=== PATIENT | male | born 1960 | race Caucasian/White ===

== ENCOUNTER 2017-03-28 11:54 | Outpatient (CLI) | payer MEDICARE, OTHER ==
[2017-03-28 12:36] LABS: CARBAMAZEPINE (TEGRETOL) 9.4 ug/mL
== END 2017-03-28 11:55 | disposition home or self-care (01) ==
LOC: LAB 11:54
PROVIDERS: ATTEND Internal Medicine
DX: R56.9 Unspecified convulsions (principal); Z79.899 Other long term (current) drug therapy
CPT/HCPCS: 36415; 80156

== ENCOUNTER 2017-04-02 08:47 | Outpatient (CLI) | payer MEDICARE, OTHER ==
[~2017-04-02 08:47] MED LIST: GADOBUTROL 10 MMOL/10 ML VIAL ONE
[2017-04-02] MEDS ORDERED: GADOBUTROL 10 MMOL/10 ML VIAL IVP ONE (09:42)
--- NOTE | 2017-04-02 22:08 | MRI Report ---
EXAM: MRI BRAIN WITHOUT AND WITH CONTRAST EXAM DATE: 04/02/2017 09:50 AM. CLINICAL HISTORY: WORSENING SEIZURE. History of cavernoma. COMPARISON: CT head 05/10/2014, MR brain 03/11/2010 TECHNIQUE: Multiplanar, multisequence T1-weighted and fluid-sensitive MR sequences of the brain were performed. Sequences optimized for routine evaluation. Other: None. IV Contrast: Yes. 10 mL Gadavist FINDINGS: Brain Volume: Normal for age. Parenchyma: Redemonstration 9 mm cavernoma posterior left frontal lobe, appearance is similar to prio r study (for example series 501 image 21). Postcontrast sequence demonstrates associated developmenta l venous anomaly (series 1002 image 86). Otherwise no white matter lesions. No MRI evidence of additi onal cavernomas. No acute hemorrhage or infarct. No other abnormal intracranial enhancement. The hip pocampi appear symmetric and qualitatively normal in size and signal. Ventricles/Cisterns: No hydrocephalus. No abnormal extra-axial fluid collection or hemorrhage. Orbits: Symmetric and unremarkable. Sella Turcica: The pituitary gland, cavernous sinuses, suprasellar cistern and optic chiasm are unrem arkable. IAC: Symmetric and unremarkable. Vasculature: Normal signal flow void is seen in the major arterial structures at the skull base. The dural sinuses are patent and enhance normally. Sinuses: Mucous retention cysts/polyps right maxillary sinus. The remaining paranasal sinuses are floridalma ar. Bones: No focal pathologic appearing marrow signal changes. Other: None. IMPRESSION: 1. 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 2. No MRI evidence of acute intracranial abnormality. Specifically, no evidence of acute or subacute infarct, acute intracranial hemorrhage, interval development of new mass, midline shift, or hydroceph alus. 3. The hippocampi appear symmetric and qualitatively normal in size and signal. [facility] Referring Provider Line: [phone] SITE ID: [id number]
== END 2017-04-02 08:48 | disposition home or self-care (01) ==
LOC: DI 08:47
PROVIDERS: ATTEND Internal Medicine
DX: R56.9 Unspecified convulsions (principal); R51 Headache; Q28.3 Other malformations of cerebral vessels
CPT/HCPCS: 70553; A9585

== ENCOUNTER 2017-07-25 11:35 | Outpatient (CLI) | payer MEDICARE, OTHER ==
[2017-07-25 11:53] LABS: BASOPHILS % (AUTO) 0.9 %; EOSINOPHILS % (AUTO) 0.9 %; HGB - HEMOGLOBIN 15.2 g/dL (14.0-18.0); LYMPHOCYTES # (AUTO) 1.6 10^3/uL (1.5-3.5); LYMPHOCYTES % (AUTO) 35.6 %; MEAN CORPUSCULAR HEMOGLOBIN 29.9 pg (27.0-31.0); MEAN CORPUSCULAR HGB CONC 33.7 g/dL (32.0-36.0); MEAN CORPUSCULAR VOLUME 88.7 fL (80.0-94.0); MEAN PLATELET VOLUME 7.3 fL (7.4-11.4); MONOCYTES # (AUTO) 0.5 10^3/uL (0.0-1.0); MONOCYTES % (AUTO) 10.4 %; NEUTROPHILS # (AUTO) 2.3 10^3/uL (1.5-6.6); NEUTROPHILS % (AUTO) 52.2 %; PLT - PLATELET COUNT 172 10^3/uL (130-450); RED BLOOD COUNT 5.08 10^6/uL (4.70-6.10); RED CELL DISTRIBUTION WIDTH 13.7 % (12.0-15.0); WHITE BLOOD COUNT 4.4 x10^3/uL (4.8-10.8)
[2017-07-25 12:09] LABS: ALBUMIN 3.9 g/dL (3.2-5.5); ALKALINE PHOSPHATASE 104 IU/L (42-121); ALT ALANINE AMINOTRANSFERASE 23 IU/L (10-60); AST ASPARTATE AMINOTRANSFERASE 20 IU/L (10-42); BILIRUBIN,DIRECT 0.1 mg/dL (0.1-0.5); BILIRUBIN,TOTAL 0.5 mg/dL (0.2-1.0); CARBAMAZEPINE (TEGRETOL) 6.6 ug/mL
== END 2017-07-25 11:36 | disposition home or self-care (01) ==
LOC: LAB 11:35
PROVIDERS: ATTEND Internal Medicine
DX: Z79.899 Other long term (current) drug therapy (principal)
CPT/HCPCS: 36415; 80076; 80156; 85025

== ENCOUNTER 2018-06-06 14:01 | Outpatient (CLI) | payer MEDICARE, OTHER | END 2018-06-06 14:02 | disposition home or self-care (01) | LOC: DI 14:01 | PROVIDERS: ATTEND Internal Medicine | DX: R00.0 Tachycardia, unspecified (principal); I51.7 Cardiomegaly | CPT/HCPCS: 93306 ==

== ENCOUNTER 2021-02-14 08:00 | Outpatient (CLI) | payer MEDICARE, OTHER | END 2021-02-14 23:59 | LOC: LAB 08:00 | PROVIDERS: ATTEND Internal Medicine | DX: U07.1 COVID-19 (principal) ==

== ENCOUNTER 2021-03-20 09:27 | Outpatient (CLI) | payer MEDICARE, OTHER ==
--- NOTE | 2021-03-20 10:20 | Ultrasound Report ---
PROCEDURE: Abdomen Limited INDICATIONS: RUQ PAIN TECHNIQUE: Real-time focused scanning was performed of the abdomen, with image documentation. COMPARISON: None FINDINGS: The liver demonstrates prominent size. The liver demonstrates mildly increased echogenicit y, which limits ultrasound sensitivity for detection of masses. No gallstones or sludge can be seen. The gallbladder wall does not appear thickened. There is no spec ific pericholecystic fluid. The sonographic Killian's sign is negative. No biliary ductal dilatation is seen. The common bile duct measures 4 mm. The visualized pancreas is within normal limits. The visualized right kidney is unremarkable. The IVC is patent. IMPRESSION: The gallbladder demonstrates a normal sonographic appearance. No biliary dilatation is seen. Increased liver echogenicity is seen. This is nonspecific, yet it is most commonly attributed to fatt y infiltration. Reviewed by: Manish Hodgson MD on 03/20/2021 9:19 AM [facility] Approved by: Manish Hodgson MD on 03/20/2021 9:19 AM [facility] Station ID: [id number]
== END 2021-03-20 09:28 | disposition home or self-care (01) ==
LOC: DI 09:27
PROVIDERS: ATTEND Internal Medicine
DX: R10.11 Right upper quadrant pain (principal); R93.2 Abnormal findings on diagnostic imaging of liver and biliary tract

== ENCOUNTER 2023-08-18 10:34 | Outpatient (CLI) | payer MEDICARE, OTHER ==
--- NOTE | 2023-08-19 16:00 | XRAY Report ---
REVISED: THIS REPORT WAS ORIGINALLY SIGNED ON 08/19/2023 @ 3:58 PM. EXAM CODE REVISED ON 09/07/2023. PROCEDURE: Shoulder 2+V RT INDICATIONS: SHOULDER DISLOCTION, RECURRENT TECHNIQUE: 3 views of the shoulder were acquired. COMPARISON: None. FINDINGS: Bones: No fractures or dislocations. Defect in the superolateral aspect of the humeral head. No radiographic abnormality of the glenoid. Narrowing of the acromiohumeral interval. Mild glenohumeral and acromioclavicular joint space narrowing and juxta-articular osteophytosis. Acromioclavicular No suspicious bony lesions. Visualized ribs appear intact. Soft tissues: No suspicious soft tissue calcifications. The visualized lungs are within normal limits. IMPRESSION: 1.No acute bony abnormality or dislocation. 2.Hill-Sachs deformity in the superolateral aspect of the humeral head. No radiographic evidence of a Bankart lesion. 3.Narrowing of the acromiohumeral interval suggestive of rotator cuff pathology. 4.Mild glenohumeral and acromioclavicular joint osteophytosis. Reviewed by: Ron Gama MD on 08/19/2023 3:58 PM PDT Approved by: Ron Gama MD on 08/19/2023 3:58 PM PDT Station ID: [id number]
== END 2023-08-18 10:35 | disposition home or self-care (01) ==
LOC: DI 10:34
PROVIDERS: ATTEND Emergency Medicine
DX: S42.291A Other displaced fracture of upper end of right humerus, initial encounter for closed fracture (principal); M25.711 Osteophyte, right shoulder

== ENCOUNTER 2023-08-29 07:26 | Outpatient (CLI) | payer MEDICARE, OTHER ==
--- NOTE | 2023-08-29 08:55 | XRAY Report ---
PROCEDURE: Shoulder 2+V RT INDICATIONS: OTHER NONDISPLACED FRACTURE OF UPPER END OF RIGHT TECHNIQUE: 3 views of the shoulder were acquired. COMPARISON: 08/18/2023 FINDINGS: Bones: Mild degenerative changes. No acute displaced fracture. Possible minimally displaced fracture versus Hill-Sachs deformity in the posterior lateral humeral head Likely superimposed calcific tendinopathy is seen. Glenohumeral alignment is maintained. Soft tissues: No suspicious calcifications. IMPRESSION: Possible minimally displaced fracture versus Hill-Sachs deformity of the posterolateral humeral head. Superimposed calcific tendinopathy. If there is high concern for further derangement, consider MRI evaluation. Reviewed by: Jimi Castro MD on 08/29/2023 8:53 AM PDT Approved by: Jimi Castro MD on 08/29/2023 8:53 AM PDT Station ID: [id number]
== END 2023-08-29 07:27 | disposition home or self-care (01) ==
LOC: DI 07:26
PROVIDERS: ATTEND Physician Assistant Surgical
DX: S42.294A Other nondisplaced fracture of upper end of right humerus, initial encounter for closed fracture (principal); M75.81 Other shoulder lesions, right shoulder